=== PATIENT | female | born 1945 | race Caucasian/White ===

== ENCOUNTER 2023-02-06 12:18 | Inpatient (IN) | payer MEDICARE, OTHER, SELFPAY ==
[2023-02-06] VITALS (20 sets, daily range): BP systolic 78–147; BP diastolic 40–97; PULSE 65–90; RESP 13–20; TEMP 36.3–37.2; O2SAT 94–100
--- NOTE | ~2023-02-06 | XR_ITS ---
XR chest 2V 02/08/2023 08:15 Indication: Right-sided chest pain Procedure: PA and lateral views the chest Comparison: 05/13/2009 Findings: Borderline heart size. Mild interstitial edema. There is a hiatal hernia. No pleural effusi on or pneumothorax. No acute osseous abnormality. Impression: 1: Mild interstitial edema. Reviewed, dictated and finalized at location B. Impression: 1: Mild interstitial edema.
--- NOTE | 2023-02-06 12:30 | ECG_ITS ---
Measurements Intervals [place] Rate: 63 P: 47 OR: 143 QRS: 33 QRSD: 90 T: 10 QT: 440 QTc: 452 Interpretive Statements SINUS RHYTHM NONSPECIFIC ST & T-WAVE ABNORMALITY- ANT/INF LEADS BASELINE WANDER- V6 BORDERLINE ECG NO PREVIOUS ECG AVAILABLE FOR COMPARISON Electronically Signed On 02-06-2023 12:36:53 CDT by Yobany Bear D.O.
[2023-02-06 12:43] LABS: Glucose Point of Care 161 mg/dl (65-105)
[2023-02-06 12:53] LABS: Basophils Percent Auto 0.3 % (0.2-1.2); Immature Granulocyte Absolute 0.07 K/mm3 (0.00-0.031); Lymphocytes Absolute Auto 0.86 K/mm3 (0.9-3.2); Lymphocytes Percent Auto 12.3 % (18.3-44.2); Mean Corpuscular HGB Conc 26.9 g/dl (32-36); Mean Corpuscular Hemoglobin 18.7 pg (26-34); Mean Corpuscular Volume 69.6 fl (80-100); Mean Platelet Volume 9.6 fl (7.4-10.4); Monocytes Absolute Auto 0.8 K/mm3 (0.1-0.6); Monocytes Percent Auto 10.8 % (2.6-8.5); Neutrophils Absolute Auto 5.3 K/mm3 (1.3-6.7); Neutrophils Percent Auto 75.6 % (45.5-73.1); Platelet Count Result 367 k/mm3 (150-375); Red Blood Count 2.99 M/mm3 (4.2-5.4); Red Cell Distribution Width 19.9 % (11.5-14.5)
[2023-02-06] MEDS: SODIUM CHLORIDE 0.9% IV 1,000 ML 999 ML (12:54)
[2023-02-06] MEDS: ONDANSETRON INJ 4 MG/2 ML VIAL IV PUSH (12:55)
[2023-02-06] MEDS: SODIUM CHLORIDE 0.9% IV 1,000 ML 999 ML IV CONT (12:55)
[2023-02-06 13:04] LABS: Alanine Aminotransferase 19 U/L (6-35); Albumin Level 3.9 g/dL (3.5-5.1); Alkaline Phosphatase 101 U/L (38-126); Anion Gap 7 mmol/L (8-16); Aspartate Amino Transferase 25 U/L (14-36); Bilirubin,Total 0.4 mg/dL (0.2-1.3); Blood Urea Nitrogen 15 mg/dL (7-17); Calcium 8.5 mg/dL (8.4-10.2); Carbon Dioxide 25 mmol/L (22-30); Chloride 100 mmol/L (98-107); Estimated Glomerular Filt Rate > 60; Glucose 148 mg/dL (65-110); Potassium 3.8 mmol/L (3.4-5.0); Sodium 132 mmol/L (137-145)
--- NOTE | 2023-02-06 13:28 | ED.WEAKNESS ---
HPI - Weakness General Chief complaint: Weakness Stated complaint: nausea/vomiting Time Seen by Provider: 02/06/23 12:27 History of Present Illness HPI Narrative: Patient is a 77-year-old female who presents ER with weakness and near syncope. Patient reports that she was making some breakfast earlier and she felt lightheaded and nearly passed out. She then immediately needed to go to the bathroom. She had multiple episodes of diarrhea. She denies any dark black stools or bright red in her stools. She reports she has had some sinus congestion with cough. No emesis. No fevers or chills or sweats. Denies chest pain or chest pressure. Reports she recently had a hoarse voice and that her had similar symptoms. Related Data Home Medications Medication Instructions Recorded Confirmed cetirizine 10 mg tablet 10 mg PO DAILY 02/06/23 02/06/23 lisinopril 10 mg tablet 10 mg PO DAILY 02/06/23 02/06/23 Allergies Allergy/AdvReac Type Severity Reaction Status Date / Time Penicillins Allergy Mild TONGUE Verified 02/06/23 15:35 SWELLING, DIFF BREATHING Review of Systems Review of Systems: All systems reviewed & are unremarkable except as noted in HPI and below Constitutional: Constitutional: Denies chills, Reports fatigue and Denies fever(s) ENT: Reports nasal congestion and Reports sore throat Cardiovascular: Cardiovascular: Denies chest pain, Denies rapid heart rate and Denies radiating jaw, neck or arm pain Respiratory: Respiratory: Denies cough and Denies dyspnea Gastrointestinal: Gastrointestinal: Denies abdominal pain, Reports diarrhea, Reports nausea and Denies vomiting Neurologic: Reports syncope (Near), Denies focal weakness and Denies numbness PMFSH Past Medical History Medical History (Updated 02/06/23 @ 22:06 by Sanjiv Maldonado MD) Hypercholesterolemia Hypertension Surgical History Surgical History (Updated 02/06/23 @ 13:31 by Sanjiv Maldonado MD) History of cholecystectomy History of hysterectomy Family History Family History (Updated 02/06/23 @ 15:41 by Marnie Napier RN) Mother Renal failure Father Heart failure Sibling Breast cancer Colon cancer Social History Social History Years smoked: 10 Smoking status: Former smoker Alcohol intake: never Substance use: never Substance use type: does not use Lack of Transportation: No Lack of Food: Never True Current Housing: I Have Housing Concerned About Future Housing: No Difficulty Paying Gas/Electric Bills: No Difficulty Paying for Meds: No Currently Unemployed: No Education: High School Diploma/GED Difficulty w/ Childcare or Family Care: No Spiritual care concerns: No Exam Narrative: GENERAL: Well-appearing, well-nourished, and in no acute distress. HEAD: Normocephalic, atraumatic. EYES: PERRL and EOMI. ENT: Mucous membranes moist. CHEST: Clear to auscultation. No respiratory distress. HEART: Regular rate and rhythm. Normal peripheral pulses. ABDOMEN: Soft, nontender, nondistended. Hemoccult negative stool. No gross blood. EXTREMITIES: Normal range of motion. No edema. SKIN: Warm, dry, no rash. NEURO: Alert and oriented x3. PSYCH: Normal mood and affect. Course Course Emergency Course: Patient resting comfortably. Informed of results. Patient being hydrated but will also require blood transfusion. Vital Signs Vital signs: Vital Signs Pulse Rate 65 02/06/23 12:29 Respiratory Rate 13 02/06/23 12:29 Blood Pressure 100/85 02/06/23 12:29 Pulse Oximetry 99 02/06/23 12:29 Oxygen Delivery Room Air 02/06/23 12:29 Temperature 98.9 F 02/06/23 21:54 Pulse Rate 80 02/06/23 21:54 Respiratory Rate 18 02/06/23 21:54 Blood Pressure 129/55 L 02/06/23 21:54 Pulse Oximetry 96 02/06/23 21:54 Oxygen Delivery Room Air 02/06/23 12:29 MDM - Weakness Lab Data 02/06/23 19:19 02/06/23 12:38
[2023-02-06 13:29] LABS: Hematocrit 20.8 % (37.0-47.0); Hemoglobin 5.6 g/dL (12.0-15.0)
[2023-02-06 13:33] LABS: Hypochromasia 2+ (NORMAL)
[2023-02-06 13:37] LABS: Anisocytosis 1+ (NORMAL); Microcytosis 1+ (NORMAL)
[2023-02-06 13:38] LABS: Ovalocytes 1+ (NORMAL); Schistocytes None Seen (NORMAL)
[2023-02-06 13:45] LABS: Appearance Urine Clear (Clear); Bacteria Urine None Seen /hpf; Bilirubin Urine 1+ (Negative); Blood Urine Negative (Negative); Color Urine Dark Yellow (Yellow); Glucose Urine UA Negative (Negative); Hyaline Casts Urine Present /lpf; Ketones Urine Trace mg/dL (Negative); Leukocyte Esterase Ur Negative LEU/UL (Negative); Mucus Urine Present /lpf; Nitrate Urine Negative (Negative); Protein Urine 1+ mg/dL (Negative); RBC Urine 0-2 /hpf (0-2); Specific Grav Ur 1.033 (1.001-1.035); Squamous Epithelial Cell Urine Occasional /hpf (Few); WBC Urine 0-5 /hpf
[2023-02-06 13:48] LABS: Add Urine Microscopic? YES
[2023-02-06 13:52] LABS: Platelet Estimate Adequate (Adequate)
[2023-02-06 14:28] LABS: Reticulocyte Percent 2.45 % (0.7-4.3); Reticulocytes Absolute 0.06 M/mm3 (0.02-0.1)
--- NOTE | 2023-02-06 15:31 | ADMGEN ---
This patient, Zanyab Patel, was admitted to 3 Medical Room 346-01. Patient/family oriented to hospital policies and general routines including ID bracelet, bed and alarms, visiting hours, pain management, procedures, bathroom and other care routines, personal items, smoking policy, room service/diet, and visiting hours. Information on how to activate the Rapid Response Team has been discussed. Patient/Family are encouraged to report perceived risks to care and to ask questions if they do not understand what they are told or what they should do.
[2023-02-06 15:46] LABS: Folic Acid 8.1 ng/mL (2.76->20)
[2023-02-06] MEDS: SODIUM CHLORIDE 0.9% IV 250 ML 30 ML IV CONT (16:07)
--- NOTE | 2023-02-06 18:30 | PM.IMHP ---
H&P: HPI History of Present Illness Date/Time: 02/06/23 18:30 Chief Complaint: Nausea or vomiting Narrative: ED-HPI Narrative: Patient is a 77-year-old female who presents ER with weakness and near syncope.? Patient reports that she was making some breakfast earlier and she felt lightheaded and nearly passed out.? She then immediately needed to go to the bathroom.? She had multiple episodes of diarrhea.? She denies any dark black stools or bright red in her stools.? She reports she has had some sinus congestion with cough.? No emesis.? No fevers or chills or sweats.? Denies chest pain or chest pressure.? Reports she recently had a hoarse voice and that her had similar symptoms. Patient denies any source of bleeding, stool guaiac was negative in emergency depart, patient denies any bruising, and states she does feel tired and weak but not very significant, initial workup shows deficiency of vitamin B12 will start the patient vitamin B12 injection 1000 mcg times, will do the iron profile, will consult glass sagger for further recommendation. Patient is admitted as observation status Review of Systems Review of Systems: All systems reviewed & are unremarkable except as noted in HPI and below Constitutional: Constitutional: Denies chills, Reports fatigue and Denies fever(s) ENT: Reports nasal congestion and Reports sore throat Cardiovascular: Cardiovascular: Denies chest pain, Denies rapid heart rate and Denies radiating jaw, neck or arm pain Respiratory: Respiratory: Denies cough and Denies dyspnea Gastrointestinal: Gastrointestinal: Denies abdominal pain, Reports diarrhea, Reports nausea and Denies vomiting Neurologic: Reports syncope (Near), Denies focal weakness and Denies numbness PMF Past Medical History Medical History (Updated 02/06/23 @ 22:06 by Sanjiv Maldonado MD) Hypercholesterolemia Hypertension Surgical History Surgical History (Updated 02/06/23 @ 13:31 by Sanjiv Maldonado MD) History of cholecystectomy History of hysterectomy Family History Family History (Updated 02/06/23 @ 15:41 by Marnie Napier RN) Mother Renal failure Father Heart failure Sibling Breast cancer Colon cancer Social History Social History Years smoked: 10 Smoking status: Former smoker Alcohol intake: never Substance use: never Substance use type: does not use Lack of Transportation: No Lack of Food: Never True Current Housing: I Have Housing Concerned About Future Housing: No Difficulty Paying Gas/Electric Bills: No Difficulty Paying for Meds: No Currently Unemployed: No Education: High School Diploma/GED Difficulty w/ Childcare or Family Care: No Spiritual care concerns: No Meds Home Medications and Allergies Home Medications Medication Instructions Recorded Confirmed Type cetirizine 10 mg tablet 10 mg PO DAILY 02/06/23 02/06/23 History lisinopril 10 mg tablet 10 mg PO DAILY 02/06/23 02/06/23 History Allergies Allergy/AdvReac Type Severity Reaction Status Date / Time Penicillins Allergy Mild TONGUE Verified 02/06/23 15:35 SWELLING, DIFF BREATHING Vital Signs Vital Signs - 24 hr 02/06/23 12:29 02/06/23 12:29 02/06/23 12:42 Temperature Pulse Rate 65 66 67 Respiratory Rate 13 Blood Pressure 100/85 107/54 L Pulse Oximetry 99 Oxygen Delivery Room Air 02/06/23 12:44 02/06/23 12:44 02/06/23 14:03 Temperature Pulse Rate 67 73 72 Respiratory Rate 18 Blood Pressure 91/45 L 78/51 L 104/40 L Pulse Oximetry 100 Oxygen Delivery 02/06/23 14:04 02/06/23 14:23 02/06/23 14:31 Temperature Pulse Rate 71 74 77 Respiratory Rate 17 17 19 Blood Pressure 104/40 L 99/50 L 107/87 Pulse Oximetry 98 99 94 Oxygen Delivery 02/06/23 14:46 02/06/23 15:19 02/06/23 15:54 Temperature 97.9 F Pulse Rate 72 71 74 Respiratory Rate 19 16 18 Blood Pressure 109/61 113/48 L 115/97 H Pulse Oximetry 100
[2023-02-06 19:31] LABS: Hematocrit 23.1 % (37.0-47.0)
[2023-02-06 19:35] LABS: Hemoglobin 6.4 g/dL (12.0-15.0)
[2023-02-06 21:13] LABS: Iron < 10 ug/dL (37-170)
[2023-02-06] MEDS: CYANOCOBALAMIN INJ 1,000 MCG/ML VIAL 1000 MCG IM (21:41)
[2023-02-06 21:45] LABS: Thyroid Stimulating Hormone Reflex 0.752 uIU/mL (0.465-4.68)
[2023-02-06 21:49] LABS: Ferritin 7.38 ng/mL (11.1-264)
[2023-02-06] MEDS: TUBING, BLOOD PLUM PUMP TUBING 1 EACH XX (21:49)
[2023-02-06 21:59] LABS: Percent Iron Saturation < 2 % (20-50)
[2023-02-07 00:27] VITALS: BP 140/46; PULSE 75; RESP 16; TEMP 38.1; O2SAT 96
[2023-02-07 00:31] VITALS: BP 140/46; PULSE 75; RESP 16; TEMP 37.2; O2SAT 96
[2023-02-07 02:09] LABS: Hematocrit 25.2 % (37.0-47.0); Hemoglobin 7.5 g/dL (12.0-15.0)
[2023-02-07 05:38] LABS: Hematocrit 25.1 % (37.0-47.0); Hemoglobin 7.6 g/dL (12.0-15.0); Mean Corpuscular HGB Conc 30.3 g/dl (32-36); Mean Corpuscular Hemoglobin 22.3 pg (26-34); Mean Corpuscular Volume 73.6 fl (80-100); Mean Platelet Volume 9.9 fl (7.4-10.4); Platelet Count Result 321 k/mm3 (150-375); Red Blood Count 3.41 M/mm3 (4.2-5.4); White Blood Count 6.5 K/mm3 (4.5-10.0)
[2023-02-07 06:00] VITALS: BP 140/48; PULSE 77; RESP 20; TEMP 37.1; O2SAT 92
[2023-02-07] MEDS: CYANOCOBALAMIN INJ 1,000 MCG/ML VIAL 1000 MCG IM (09:17)
[2023-02-07] MEDS: LORATADINE 10 MG TABLET PO (09:17)
[2023-02-07 14:00] VITALS: BP 141/51; PULSE 82; RESP 18; TEMP 36.8; O2SAT 95
--- NOTE | 2023-02-07 14:58 | WPDPN ---
Progress Note: A&P Assessment and Plan (1) Anemia: Code(s): D64.9 - Anemia, unspecified Status: Acute Plan ED-HPI Narrative: Patient is a 77-year-old female who presents ER with weakness and near syncope.? Patient reports that she was making some breakfast earlier and she felt lightheaded and nearly passed out.? She then immediately needed to go to the bathroom.? She had multiple episodes of diarrhea.? She denies any dark black stools or bright red in her stools.? She reports she has had some sinus congestion with cough.? No emesis.? No fevers or chills or sweats.? Denies chest pain or chest pressure.? Reports she recently had a hoarse voice and that her had similar symptoms. 02/07/2023 interval history: Patient denies any source of bleeding, stool guaiac was negative in emergency depart, patient denies any bruising, and states she does feel tired and weak but not very significant, initial workup shows deficiency of vitamin B12 will start the patient vitamin B12 injection 1000 mcg 2x times, patient also has a significant iron deficiency will start the patient on Venofer 300 mg times 2, will consult plastic outfitter for further recommendation. Subjective Date/time seen: 02/07/23 14:58 Interval history: ED-HPI Narrative: Patient is a 77-year-old female who presents ER with weakness and near syncope.? Patient reports that she was making some breakfast earlier and she felt lightheaded and nearly passed out.? She then immediately needed to go to the bathroom.? She had multiple episodes of diarrhea.? She denies any dark black stools or bright red in her stools.? She reports she has had some sinus congestion with cough.? No emesis.? No fevers or chills or sweats.? Denies chest pain or chest pressure.? Reports she recently had a hoarse voice and that her had similar symptoms. 02/07/2023 interval history: Patient denies any source of bleeding, stool guaiac was negative in emergency depart, patient denies any bruising, and states she does feel tired and weak but not very significant, initial workup shows deficiency of vitamin B12 will start the patient vitamin B12 injection 1000 mcg 2x times, patient also has a significant iron deficiency will start the patient on Venofer 300 mg times 2, will consult plastic outfitter for further recommendation. Review of Systems Review of Systems: All systems reviewed & are unremarkable except as noted in HPI and below Exam Narrative: Patient is comfortable, NAD HEENT: eyes are clear and none icteric LUNGS:CTA HEART: RR S1S2 ABD: BS+, Soft and nontender Lower extremities: no edema SKIN: nonjaundiced Neuro: grossly intact. Objective Data Vital Signs Vital Signs: Vital Signs - 24 hr 02/06/23 15:19 02/06/23 15:54 02/06/23 16:06 Temperature 97.9 F 97.9 F Pulse Rate 71 74 74 Respiratory Rate 16 18 18 Blood Pressure 113/48 L 115/97 H 115/97 H Pulse Oximetry 100 100 100 Oxygen Delivery 02/06/23 16:21 02/06/23 17:21 02/06/23 18:21 Temperature 97.4 F L 98.1 F 97.5 F L Pulse Rate 76 72 90 Respiratory Rate 18 16 18 Blood Pressure 118/60 114/55 L 114/70 Pulse Oximetry 97 99 97 Oxygen Delivery 02/06/23 19:20 02/06/23 20:00 02/06/23 21:04 Temperature 98.5 F 98.2 F 98.5 F Pulse Rate 81 73 81 Respiratory Rate 20 18 20 Blood Pressure 133/48 L 132/44 L 133/48 L Pulse Oximetry 100 100 100 Oxygen Delivery 02/06/23 21:38 02/06/23 21:54 02/06/23 23:50 Temperature 98.3 F 98.9 F 98.8 F Pulse Rate 88 80 75 Respiratory Rate 18 18 20 Blood Pressure 92/54 L 129/55 L 147/54 H Pulse Oximetry 98 96 97 Oxygen Delivery 02/07/23 00:27 02/07/23 00:31 02/07/23 06:00 Temperature 100.6 F H 98.9 F 98.7 F Pulse Rate 75 75 77 Respiratory Rate 16 16 20 Blood Pressure 140/46 L 140/46 L 140/48 L Pulse Oximetry 96 96 92 Oxygen Delivery 02/07/23 08:00 Temperature Pulse Rate Respiratory Rate Blood Pressure Pulse Oximetry Oxygen Delivery Room Air
[2023-02-07 17:42] LABS: Anion Gap 8 mmol/L (8-16); Blood Urea Nitrogen 17 mg/dL (7-17); Calcium 8.1 mg/dL (8.4-10.2); Carbon Dioxide 26 mmol/L (22-30); Chloride 100 mmol/L (98-107); Estimated Glomerular Filt Rate > 60; Glucose 89 mg/dL (65-110); Potassium 4.6 mmol/L (3.4-5.0); Sodium 134 mmol/L (137-145)
--- NOTE | 2023-02-07 18:10 | PDONCCN ---
HPI - Date of Consult Date/Time: 02/07/23 18:10 Requesting Physician: Chandni Yen MD Primary Care Provider: [place] - Consult Narrative Reason for consult: Microcytic anemia Narrative: Zaynab Patel is a 77 year old female with history of hyperlipidemia and hypertension brought into the ER with near syncopal episode. According the patient she was eating her breakfast and felt dizzy and lightheaded and almost passed out. She woke up and went to the bathroom and had significant episode of diarrhea. She denies any melena hematochezia. She denies any chest pain and shortness of breath. She denies being a vegetarian. Denies any previous history of gastric bypass surgery. There is no recent history of anemia other than when she was . Her last colonoscopy was more than 5 years ago. Hemoccult stool testing done in the ER was negative. Labs showed significant iron deficiency with vitamin B12 deficiency. She was started on iron infusion and vitamin B12 injections. She denies any weight loss. No other new complaints. Review of Systems - Review of Systems All systems reviewed & are unremarkable except as noted in HPI and bel - Neurologic Reports syncope (Near), Denies focal weakness, Denies numbness PMFSH Medical History: Medical History (Last Updated 02/06/23 @ 13:31 by Sanjiv Maldonado MD) Hypercholesterolemia Hypertension Surgical History: Surgical History (Last Updated 02/06/23 @ 13:31 by Sanjiv Maldonado MD) History of cholecystectomy History of hysterectomy Family History: Family History (Last Updated 02/06/23 @ 15:41 by Marnie Napier RN) Mother Renal failure Father Heart failure Sibling Breast cancer Colon cancer - Social History Social History: Social History Alcohol Use: Alcohol intake: never Substance Use: Substance use: never Substance use type: does not use Others: Spiritual care concerns: No Smoking Status: Smoking status: Former smoker Approximate Smoking End Date: quit years ago Smoking Pack-years: Years smoked: 10 Social Determinants of Health: Has the Lack of Transportation Kept You From Medical Appointments or From Getting Medications?: No Within the Past 12 Months, Were You Worried Whether Your Food Would Run Out Before You Got Money to Buy More?: Never True What is Your Housing Situation Today?: I Have Housing Are You Worried That in the Next 2 Months, You May Not Have Your Own Housing to Live In?: No Do You Have Trouble Paying Your Heating Or Electricity Bill?: No Do You Have Trouble Paying For Medicines?: No Are You Currently Unemployed and Looking for Work?: No Highest Level of Education Completed: High School Diploma/GED Do You Have Trouble With Childcare or the Care of a Family Member?: No Exam - Vital Signs Vital Signs - 24 hr 02/06/23 18:21 02/06/23 19:20 02/06/23 20:00 Temperature 36.4 C L 36.9 C 36.8 C Pulse Rate 90 81 73 Respiratory Rate 18 20 18 Blood Pressure 114/70 133/48 L 132/44 L Pulse Oximetry 97 100 100 Oxygen Delivery 02/06/23 21:04 02/06/23 21:38 02/06/23 21:54 Temperature 36.9 C 36.8 C 37.2 C Pulse Rate 81 88 80 Respiratory Rate 20 18 18 Blood Pressure 133/48 L 92/54 L 129/55 L Pulse Oximetry 100 98 96 Oxygen Delivery 02/06/23 23:50 02/07/23 00:27 02/07/23 00:31 Temperature 37.1 C 38.1 C H 37.2 C Pulse Rate 75 75 75 Respiratory Rate 20 16 16 Blood Pressure 147/54 H 140/46 L 140/46 L Pulse Oximetry 97 96 96 Oxygen Delivery 02/07/23 06:00 02/07/23 08:00 02/07/23 14:00 Temperature 37.1 C 36.8 C Pulse Rate 77 82 Respiratory Rate 20 18 Blood Pressure 140/48 L 141/51 H Pulse Oximetry 92 95 Oxygen Delivery Room Air - Exam HEENT: EOMI, PERRLA, mucous membranes moist and pink Neck: supple. No: JVD Lungs: clear to auscultation, normal air movement Heart: no murmurs, gallops,
[2023-02-07 20:22] VITALS: TEMP 38.7
[2023-02-07] MEDS: ACETAMINOPHEN 325 MG TABLET 650 MG PO (20:22)
[2023-02-07 20:48] VITALS: BP 137/45; PULSE 76; RESP 18; TEMP 38.7; O2SAT 93
[2023-02-07 21:50] LABS: Lactate Dehydrogenase 154 U/L (120-246)
[2023-02-08 03:34] VITALS: TEMP 36.8
[2023-02-08 05:40] LABS: Hematocrit 29.8 % (37.0-47.0); Hemoglobin 8.7 g/dL (12.0-15.0); Mean Corpuscular HGB Conc 29.2 g/dl (32-36); Mean Corpuscular Hemoglobin 21.7 pg (26-34); Mean Corpuscular Volume 74.3 fl (80-100); Mean Platelet Volume 9.9 fl (7.4-10.4); Platelet Count Result 364 k/mm3 (150-375); Red Blood Count 4.01 M/mm3 (4.2-5.4); Red Cell Distribution Width 21.2 % (11.5-14.5); White Blood Count 6.9 K/mm3 (4.5-10.0)
[2023-02-08 05:47] LABS: Magnesium 2.1 mg/dL (1.6-2.3)
[2023-02-08 06:00] VITALS: BP 140/53; PULSE 68; RESP 18; TEMP 37; O2SAT 94
--- NOTE | 2023-02-08 07:48 | ECG_ITS ---
Measurements Intervals [place] Rate: 69 P: 61 [place]: 136 QRS: 54 QRSD: 90 T: 14 QT: 396 QTc: 426 Interpretive Statements SINUS RHYTHM BORDERLINE ST-T WAVE ABNORMALITY- INFERIOR LEADS BORDERLINE ECG COMPARED TO ECG 02/06/2023 12:33:00 NO SIGNIFICANT CHANGES Electronically Signed On 02-08-2023 9:43:18 CDT by Yobany Bear D.O.
[2023-02-08 08:26] LABS: Troponin I 0.016 ng/mL (0.000-0.034)
[2023-02-08] MEDS: ACETAMINOPHEN 325 MG TABLET 650 MG PO (09:32)
[2023-02-08] MEDS: FUROSEMIDE INJ 40 MG/4 ML VIAL IV PUSH (09:32)
[2023-02-08] MEDS: LORATADINE 10 MG TABLET PO (09:33)
[2023-02-08 14:00] VITALS: BP 116/56; PULSE 69; RESP 18; TEMP 36.8; O2SAT 97
--- NOTE | 2023-02-08 15:29 | WPDPN ---
Progress Note: A&P Assessment and Plan (1) Anemia: Code(s): D64.9 - Anemia, unspecified Status: Acute Plan ED-HPI Narrative: Patient is a 77-year-old female who presents ER with weakness and near syncope.? Patient reports that she was making some breakfast earlier and she felt lightheaded and nearly passed out.? She then immediately needed to go to the bathroom.? She had multiple episodes of diarrhea.? She denies any dark black stools or bright red in her stools.? She reports she has had some sinus congestion with cough.? No emesis.? No fevers or chills or sweats.? Denies chest pain or chest pressure.? Reports she recently had a hoarse voice and that her had similar symptoms. 02/08/2023 interval history: Patient denies any source of bleeding, stool guaiac was negative in emergency depart, patient denies any bruising, and states she does feel tired and weak but not very significant, initial workup shows deficiency of vitamin B12 will start the patient vitamin B12 injection 1000 mcg 2x times, patient also has a significant iron deficiency started the patient on Venofer 300 mg times 2, patient was seen calender worker helper due to severe iron deficiency suspect GI concern though patient stool Hemoccult is negative recommended to consult GI, there is no GI available this week in the hospital, today patient was with cough shortness a chest x-ray showed mild pulmonary edema will give the patient Lasix 40 mg x1, will monitor for further recommendation. Subjective Date/time seen: 02/08/23 15:29 Interval history: ED-HPI Narrative: Patient is a 77-year-old female who presents ER with weakness and near syncope.? Patient reports that she was making some breakfast earlier and she felt lightheaded and nearly passed out.? She then immediately needed to go to the bathroom.? She had multiple episodes of diarrhea.? She denies any dark black stools or bright red in her stools.? She reports she has had some sinus congestion with cough.? No emesis.? No fevers or chills or sweats.? Denies chest pain or chest pressure.? Reports she recently had a hoarse voice and that her had similar symptoms. 02/08/2023 interval history: Patient denies any source of bleeding, stool guaiac was negative in emergency depart, patient denies any bruising, and states she does feel tired and weak but not very significant, initial workup shows deficiency of vitamin B12 will start the patient vitamin B12 injection 1000 mcg 2x times, patient also has a significant iron deficiency started the patient on Venofer 300 mg times 2, patient was seen calender worker helper due to severe iron deficiency suspect GI concern though patient stool Hemoccult is negative recommended to consult GI, there is no GI available this week in the hospital, today patient was with cough shortness a chest x-ray showed mild pulmonary edema will give the patient Lasix 40 mg x1, will monitor for further recommendation. Review of Systems Review of Systems: All systems reviewed & are unremarkable except as noted in HPI and below Exam Narrative: Patient is comfortable, NAD HEENT: eyes are clear and none icteric LUNGS:CTA HEART: RR S1S2 ABD: BS+, Soft and nontender Lower extremities: no edema SKIN: nonjaundiced Neuro: grossly intact. Objective Data Vital Signs Vital Signs: Vital Signs - 24 hr 02/07/23 20:22 02/07/23 20:48 02/07/23 20:00 Temperature 101.7 F H 101.7 F H Pulse Rate 76 Respiratory Rate 18 Blood Pressure 137/45 L Pulse Oximetry 93 Oxygen Delivery Room Air 02/08/23 03:34 02/08/23 06:00 02/08/23 08:00 Temperature 98.3 F 98.6 F Pulse Rate 68 Respiratory Rate 18 Blood Pressure 140/53 L Pulse Oximetry 94 Oxygen Delivery Room Air Intake/Output Intake/Output: Intake & Output 02/05/23 02/06/23 02/07/23 02/08/23 23:59 23:59 23:59 23:59 Intake Total 2830 2475 525 Output Total 809 412 8594 Balance 2605 4544 -604 Meds/Results Medicatio
[2023-02-08 19:34] LABS: Anion Gap 7 mmol/L (8-16); Blood Urea Nitrogen 16 mg/dL (7-17); Calcium 8.7 mg/dL (8.4-10.2); Carbon Dioxide 33 mmol/L (22-30); Chloride 94 mmol/L (98-107); Estimated Glomerular Filt Rate 48; Glucose 126 mg/dL (65-110); Potassium 3.4 mmol/L (3.4-5.0); Sodium 134 mmol/L (137-145)
[2023-02-08 20:00] VITALS: PULSE 75; RESP 18; O2SAT 95
[2023-02-08 20:10] VITALS: BP 138/66; PULSE 75; RESP 18; TEMP 36.6; O2SAT 95
[2023-02-08 20:11] VITALS: BMI 35.9
[2023-02-09 05:40] LABS: Hemoglobin 8.7 g/dL (12.0-15.0); Mean Corpuscular Hemoglobin 21.5 pg (26-34); Mean Corpuscular Volume 74.3 fl (80-100); Mean Platelet Volume 9.4 fl (7.4-10.4); Platelet Count Result 356 k/mm3 (150-375); Red Blood Count 4.04 M/mm3 (4.2-5.4); Red Cell Distribution Width 22.5 % (11.5-14.5)
[2023-02-09 05:53] LABS: Magnesium 2.1 mg/dL (1.6-2.3)
[2023-02-09 06:02] VITALS: BP 132/52; PULSE 65; RESP 16; TEMP 36.9; O2SAT 95
[2023-02-09 09:30] VITALS: O2SAT 95
[2023-02-09] MEDS: POTASSIUM CHLORIDE 20 MEQ TABLET 40 MEQ PO (09:30)
[2023-02-09] MEDS: LORATADINE 10 MG TABLET PO (09:31)
--- NOTE | 2023-02-09 12:35 | PM.DS ---
DS: Admitting Diagnosis Discharge Date 02/09/2023 Admitting Diagnosis Nausea or vomiting DS: Discharge Diagnosis Discharge Diagnosis (1) Anemia: Code(s): D64.9 - Anemia, unspecified Status: Acute Plan ED-HPI Narrative: Patient is a 77-year-old female who presents ER with weakness and near syncope.? Patient reports that she was making some breakfast earlier and she felt lightheaded and nearly passed out.? She then immediately needed to go to the bathroom.? She had multiple episodes of diarrhea.? She denies any dark black stools or bright red in her stools.? She reports she has had some sinus congestion with cough.? No emesis.? No fevers or chills or sweats.? Denies chest pain or chest pressure.? Reports she recently had a hoarse voice and that her had similar symptoms. 02/08/2023 interval history: Patient denies any source of bleeding, stool guaiac was negative in emergency depart, patient denies any bruising, and states she does feel tired and weak but not very significant, initial workup shows deficiency of vitamin B12 will start the patient vitamin B12 injection 1000 mcg 2x times, patient also has a significant iron deficiency started the patient on Venofer 300 mg times 2, patient was seen [facility] programmer due to severe iron deficiency suspect GI concern though patient stool Hemoccult is negative recommended to consult GI, there is no GI available this week in the hospital, today patient was with cough shortness a chest x-ray showed mild pulmonary edema will give the patient Lasix 40 mg x1, will monitor for further recommendation. DS: Summary Hospital Course Reason for hospitalization: Nausea or vomiting Narrative: ED-HPI Narrative: Patient is a 77-year-old female who presents ER with weakness and near syncope.? Patient reports that she was making some breakfast earlier and she felt lightheaded and nearly passed out.? She then immediately needed to go to the bathroom.? She had multiple episodes of diarrhea.? She denies any dark black stools or bright red in her stools.? She reports she has had some sinus congestion with cough.? No emesis.? No fevers or chills or sweats.? Denies chest pain or chest pressure.? Reports she recently had a hoarse voice and that her had similar symptoms. Patient denies any source of bleeding, stool guaiac was negative in emergency depart,? patient denies any bruising, and states she does feel tired and weak but not very significant, initial workup shows deficiency of vitamin B12 will start the patient vitamin B12 injection 1000 mcg times, will do the iron profile, will consult [facility] programmer for further recommendation. Hospital Course: Patient denies any source of bleeding, stool guaiac was negative in emergency depart,? patient denies any bruising, and states she does feel tired and weak but not very significant, initial workup shows deficiency of vitamin B12 will start the patient vitamin B12 injection 1000 mcg 2x times, patient also has a significant iron deficiency started the patient on Venofer 300 mg times 2, patient was seen [facility] programmer due to severe iron deficiency suspect GI concern though patient stool Hemoccult is negative recommended to consult GI, there is no GI available this week in the hospital,? today patient was with cough shortness a chest x-ray showed mild pulmonary edema will give the patient Lasix 40 mg x1, will monitor for further recommendation. Patient remains clinically stable has no new complaint will discharge the patient today to follow-up with her primary care provider and landscape technician as soon as possible, Time Spent with Patient Time attestation: Total time spent providing and/or coordinating discharge services: Exam Narrative: Patient is comfortable, NAD HEENT: eyes are clear and none icteric LUNGS:CTA HEART: RR S1S2 ABD: BS+, Soft and nontender Lower extremities: no edema SKIN: nonjaundiced Neuro: grossly intact. DS: Data Data Completed
== END 2023-02-09 13:39 | disposition home or self-care (01) | DRG 812 ==
LOC: ANHED 13:31 → ANH3MED 15:01
PROVIDERS: Internal Medicine Hematology & Oncology; Admitting Provider Family Medicine; Emergency Provider Emergency Medicine; Visit Provider Family Medicine
DX: D50.9 Iron deficiency anemia, unspecified (principal); E53.8 Deficiency of other specified B group vitamins; I95.1 Orthostatic hypotension; E78.00 Pure hypercholesterolemia, unspecified; I10 Essential (primary) hypertension; R19.7 Diarrhea, unspecified; Z90.49 Acquired absence of other specified parts of digestive tract; Z90.710 Acquired absence of both cervix and uterus; Z87.891 Personal history of nicotine dependence; Z88.0 Allergy status to penicillin
CPT/HCPCS: 36415; 36430; 71046; 80048; 80053; 81001; 82607; 82728; 82746; 82948; 83540; 83550; 83615; 83735; 84443; 84484; 85014; 85018; 85025; 85027; 85046; 86850; 86880; 86900; 86901; 86923; 93005; 96361; 96365; 96366; 96372; 96374; 96375; 99285; A9270; G0378; J1756; J1940; J2405; J3420; J7030; J7050; P9016